=== PATIENT | female | born 1960 | race Caucasian/White ===

== ENCOUNTER → 2016-10-03 | Outpatient (CLI) | payer BC ==
[~2016-10-03] MED LIST: ASPI81TA28 PO; MULT-845 PO
== END | disposition home or self-care (01) ==
LOC: C.PAPS 11:17
PROVIDERS: ATTEND Obstetrics & Gynecology
DX: Z01.419 Encounter for gynecological examination (general) (routine) without abnormal findings (principal)

== ENCOUNTER → 2016-10-08 | Outpatient (CLI) | payer BC ==
[2016-10-08 13:22] LABS: CHOLESTEROL/HDL RATIO 2.8; THYROID STIMULATING HORMONE 1.3 uIu/ml (0.300-4.500)
== END | disposition home or self-care (01) ==
LOC: C.LABPVFM 07:35
PROVIDERS: ATTEND Obstetrics & Gynecology
DX: E04.9 Nontoxic goiter, unspecified (principal); Z13.220 Encounter for screening for lipoid disorders

== ENCOUNTER → 2016-10-10 | Outpatient (CLI) | payer BC ==
--- NOTE | 2016-10-10 10:23 | DIAGNOSTIC IMAGING REPORT ---
THYROID ULTRASOUND HISTORY: Thyroid nodularity E04.9 [id number] COMPARISON: None. FINDINGS: Right lobe: Maximum dimension 4.2 cm. 2 nodular densities measuring up to 7 mm x 9 mm. Left lobe: Maximum dimension 4.1 cm. 6 mm hypoechoic nodule. Isthmus: No nodules. IMPRESSION: Several small subcentimeter hypoechoic nodules bilaterally. Otherwise negative study Electronically signed by: Juventino Esquivel M.D. 10/10/2016 10:22 AM Dictated Date/Time: 10/10/2016 10:20 AM
== END | disposition home or self-care (01) ==
LOC: C.ULTRBC 10:01
PROVIDERS: ATTEND Obstetrics & Gynecology
DX: E04.2 Nontoxic multinodular goiter (principal)

== ENCOUNTER → 2016-11-12 | Outpatient (CLI) | payer BC ==
[2016-11-12 17:29] LABS: BLOOD UREA NITROGEN 15 mg/dl (7-18); BUN/CREATININE RATIO 17.4 (10-20); CALCIUM 9.5 mg/dl (8.5-10.1); CARBON DIOXIDE 26 mmol/L (21-32); CHLORIDE 103 mmol/L (98-107); CREATININE 0.88 mg/dl (0.60-1.20); GLUCOSE 81 mg/dl (70-99); POTASSIUM 4.1 mmol/L (3.5-5.1); SODIUM 138 mmol/L (136-145)
== END | disposition home or self-care (01) ==
LOC: C.LABPVFM 14:56
PROVIDERS: ATTEND Nurse Practitioner
DX: E04.9 Nontoxic goiter, unspecified (principal); Z13.1 Encounter for screening for diabetes mellitus

== ENCOUNTER → 2017-01-01 | Outpatient (CLI) | payer BC ==
--- NOTE | 2017-01-01 15:22 | MAMMOGRAPHY REPORT ---
BILATERAL DIGITAL SCREENING MAMMOGRAM TOMOSYNTHESIS WITH CAD: 01/01/2017 CLINICAL HISTORY: Routine screening. Patient has no complaints. TECHNIQUE: Breast tomosynthesis in addition to standard 2D mammography was performed. Current study was also evaluated with a Computer Aided Detection (CAD) system. COMPARISON: Comparison is made to exams dated: 12/28/2015 mammogram, 12/24/2014 mammogram, 12/18/2013 m ammogram, 12/10/2012 mammogram, 12/03/2011 mammogram, and 11/27/2010 mammogram - [facility] enter. BREAST COMPOSITION: There are scattered areas of fibroglandular density in both breasts. FINDINGS: There are stable nodular asymmetries in the superior right breast. No new suspicious mass , architectural distortion or cluster of microcalcifications is seen. IMPRESSION: ACR BI-RADS CATEGORY 1: NEGATIVE There is no mammographic evidence of malignancy. A 1 year screening mammogram is recommended. The p atient will receive written notification of the results. Approximately 10% of breast cancers are not detected with mammography. A negative mammographic repor t should not delay biopsy if a clinically suggestive mass is present. Tasia Juan M.D. ay/:01/01/2017 08:17:30 [employer] Operations Manager: Gayathri TREVIZO(Natasha)([place]), [facility] letter sent: Normal 1/2 BI-RADS Code: ACR BI-RADS Category 1: Negative
== END | disposition home or self-care (01) ==
LOC: C.MAMM 07:06
PROVIDERS: ATTEND Obstetrics & Gynecology
DX: Z12.31 Encounter for screening mammogram for malignant neoplasm of breast (principal)